=== PATIENT | male | born 1950 ===

== ENCOUNTER 2018-06-10 08:15 | Day surgery (SDC) | payer MEDICARE ==
[2018-06-09 11:45] VITALS: BMI 26.1
[2018-06-10 08:32] LABS: Hemoglobin 17.3 g/dL (14.0-18.0); Mean Corpuscular HGB CONC 33.1 g/dL (32.0-36.0); Mean Corpuscular Hemoglobin 27.7 pg (27.0-31.0); Mean Corpuscular Volume 83.8 fL (78.0-98.0); Mean Platelet Volume 7.6 fL (7.4-10.4); Platelet Count 335 thou/uL (130-400); RBC Distribution Width 14.3 % (11.5-14.5); Red Blood Cell (RBC) Count 6.23 mill/uL (4.70-6.10); White Blood Cell (WBC) Count 10.3 thou/uL (4.8-10.8)
[2018-06-10 08:40] LABS: INR-International Normal Ratio 1.1; PTT 39.6 SEC (22.9-36.1); Prothrombin Time 14.4 SEC (12.0-14.7)
[2018-06-10] MEDS ORDERED: Sodium Bicarbonate 2.5 MEQ/5 ML VIAL ONE (11:01)
[2018-06-10] MEDS ORDERED: Midazolam HCl 2 mg/2 ml Vial ONE (11:02)
[2018-06-10] MEDS ORDERED: Fentanyl 100 MCG/2 ML VIAL ONE (11:02)
--- NOTE | 2018-06-10 14:21 | CT ---
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 TECHNIQUE: Signed informed consent obtained. Patient placed prone on CT table. Skin posterior to right posterior superior iliac spine prepped and draped in usual sterile fashion. 25-gauge needle used to apply buff ered lidocaine superficially, then deeply at the periosteum. Bone biopsy 11-gauge introducer with tro car purchased at posterior cortex of posterior superior iliac spine. Trocar removed. Using 20 mL syri nge, 10 mL of bone marrow hemorrhagic fluid was aspirated and given to clinical laboratory aide from [facility]. [employer] mechanical power drill system used to obtain single core bone marrow sample, given to chief technician x ray. Patient tolerated the procedure well. No complications. Moderate sedation: Moderate sedation was discussed with the patient prior to the procedure. IV Versed total 1mg IV fentanyl 25 mcg. IMPRESSION: Successful 12-gauge core bone marrow biopsy x1
--- NOTE | 2018-06-14 14:56 | CT ---
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 TECHNIQUE: Signed informed consent obtained. Patient placed prone on CT table. Skin posterior to right posterior superior iliac spine prepped and draped in usual sterile fashion. 25-gauge needle used to apply buff ered lidocaine superficially, then deeply at the periosteum. Bone biopsy 11-gauge introducer with tro car purchased at posterior cortex of posterior superior iliac spine. Trocar removed. Using 20 mL syri nge, 10 mL of bone marrow hemorrhagic fluid was aspirated and given to laboratory equipment installer from [facility]. [employer] mechanical power drill system used to obtain single core bone marrow sample, given to industrial cleaning technician. Patient tolerated the procedure well. No complications. Moderate sedation: Moderate sedation was discussed with the patient prior to the procedure. IV Versed total 1mg IV fentanyl 25 mcg. IMPRESSION: Successful 12-gauge core bone marrow biopsy x1 Transcribed Date/Time: 06/14/2018 2:56 PM
== END 2018-06-10 12:35 | disposition home or self-care (01) ==
LOC: RAD 08:15
PROVIDERS: ATTEND Radiology Neuroradiology
DX: D47.3 Essential (hemorrhagic) thrombocythemia (principal); I10 Essential (primary) hypertension; Z85.828 Personal history of other malignant neoplasm of skin; Z79.82 Long term (current) use of aspirin; Z79.899 Other long term (current) drug therapy; Z98.890 Other specified postprocedural states
CPT/HCPCS: 20225; 38222; 77012; 85027; 85097; 85610; 85730; 88184; 88237; 88264; 88280 ×2; 88305; 88311; 88313; C1729; J2250; J3010